=== PATIENT | male | born 1945 | race Caucasian/White ===

== ENCOUNTER 2017-09-08 13:53 | Emergency (ER) | payer MEDICARE, BC | END 2017-09-08 14:50 | disposition home or self-care (01) | LOC: ERS 13:53 | DX: S61.211A Laceration without foreign body of left index finger without damage to nail, initial encounter (principal); E78.5 Hyperlipidemia, unspecified; I10 Essential (primary) hypertension; W29.3XXA Contact with powered garden and outdoor hand tools and machinery, initial encounter | CPT/HCPCS: 99282 ==

== ENCOUNTER 2020-02-24 10:29 | Outpatient (CLI) | payer MEDICARE, BC ==
--- NOTE | 2020-02-24 11:43 | MRI ---
MRI Lumbar Spine Noncontrast: HISTORY: Lumbar disc degeneration. Patient complains of bilateral leg numbness and pain for 2 months. Progress ively worse. COMPARISON: None FINDINGS: Few subcentimeter increased T2-weighted signal intensity foci are seen in the inferior pole right devan story which are difficult to characterize due to small size but statistically likely represent tiny cysts. Incidental note is made of a circumaortic left renal vein. Visualized retroperitoneal structur es otherwise demonstrate a normal MRI appearance. Conus medullaris is normal in morphology and terminates at the L1-2 level. Paravertebral soft tissues have a normal appearance. There is generalized heterogeneity of the bone marrow which is nonspecific. Prominent Schmorl's nodes are seen at the L2-3 level. Multilevel degenerative changes are seen throughout the spine. There is suggestion of vacuum phenomenon in the intervertebral discs at multiple levels. T12-L1: Tiny central disc protrusion. Central spinal canal and neural foramina are patent. L1-2: There is no disc bulge or disc herniation. Central spinal canal and neural foramina are patent. L2-3: Loss of intervertebral disc height with endplate degenerative changes. Broad-based disc osteoph yte complex is present. Facet hypertrophic changes and ligamentous thickening are noted. There is generalized mild to moderate narrowing of the central spinal canal. There is mild left and mild-to-mo derate right-sided neural foraminal narrowing L3-4: Loss of intervertebral disc height. Broad-based disc osteophyte complex is present. There are m oderate facet hypertrophic changes as well as ligamentous thickening. Moderate central canal narrowing is present with mild left and mild/moderate right-sided neural foraminal narrowing is noted . L4-5: Loss of intervertebral disc height. Broad-based disc osteophyte complex is present with a small central disc protrusion with disc material extending posterior to the inferior aspect of the L4 vertebral body. Severe facet hypertrophic changes as well as ligamentous thickening are present. Ther e is severe central canal narrowing. [id number] bilateral neural foraminal narrowing is present. L5-S1: Loss of intervertebral disc height. Mild disc osteophyte complex is present. Severe facet hype rtrophic changes are noted. Fluid signal intensity seen in each facet joint likely attributable to the facet degenerative changes. There is encroachment on the traversing bilateral L5 nerve roots, but the nerve roots do not appear to be displaced. No mass effect is present on the thecal sac. Mild bilateral neural foraminal narrowing is present greater on the left. IMPRESSION: Multilevel degenerative changes with findings greatest at the L4-5 level where there is severe centra l canal narrowing secondary to disc osteophyte complex, central disc protrusion, and severe facet hypertrophic changes and ligamentous thickening.
== END 2020-02-24 10:30 | disposition home or self-care (01) ==
LOC: TBSIIMAG 10:29
PROVIDERS: ATTEND Neurological Surgery
DX: M51.36 Other intervertebral disc degeneration, lumbar region (principal); M47.816 Spondylosis without myelopathy or radiculopathy, lumbar region; M48.061 Spinal stenosis, lumbar region without neurogenic claudication; M25.78 Osteophyte, vertebrae; M24.28 Disorder of ligament, vertebrae; M89.38 Hypertrophy of bone, other site; M51.26 Other intervertebral disc displacement, lumbar region; M51.37 Other intervertebral disc degeneration, lumbosacral region; M48.07 Spinal stenosis, lumbosacral region
CPT/HCPCS: 72148